=== PATIENT | female | born 1955 | race Asian ===

== ENCOUNTER 2021-11-06 07:36 | Emergency (ER) | payer SELFPAY ==
[~2021-11-06] VITALS: Ht 157.5 cm; Wt 54.4 kg
[2021-11-06 07:58] VITALS: BP_SYST 149
--- NOTE | 2021-11-06 08:02 | NUR ---
Patient to ER bed 8 to gown for evaluation. Side rails up. Report given to Evelyn RODRIGUEZ.
--- NOTE | 2021-11-06 08:12 | NUR ---
First contact with patient. Per report received from press and blow machine tender, patient reporting high blood sugar from home. Awake, alert and oriented x 3. Patient has not been taking medications for DM due to insurance lapse. Blood sugar in triage over 400. Will continue to monitor.
--- NOTE | 2021-11-06 08:13 | NUR ---
Dr Wick to bedside to evaluate patient.
[2021-11-06] MEDS ORDERED: NACL 0.9% 1,000 ML IV ONE (08:30)
--- NOTE | 2021-11-06 08:34 | NUR ---
CXR done at bedside
--- NOTE | 2021-11-06 08:35 | NUR ---
# 20 gauge angiocath placed to L AC. Use of asceptic technique. Opsite placed over site. Blood return noted. Blood for lab drawn from site. Flushed with 10 cc of normal saline. No evidence of infiltration noted. Patient tolerated well.
[2021-11-06 08:50] LABS: BILIRUBIN,URINE NEGATIVE (NEGATIVE); BLOOD, URINE NEGATIVE (NEGATIVE); COLOR,URINE YELLOW (YELLOW); GLUCOSE,URINE 3+ (NEGATIVE); KETONES,URINE 2+ (NEGATIVE); LEUKOCYTE ESTERASE ,URINE NEGATIVE (NEGATIVE); NITRITE, URINE NEGATIVE (NEGATIVE); PROTEIN URINE NEGATIVE (NEGATIVE); UROBILINOGEN,URINE 0.2 (0.2-1.0)
[2021-11-06 08:52] LABS: BASOPHILS % (AUTO) 0.3 % (0.0-2.0); EOSINOPHILS # (AUTO) 0.1 K/uL (0.0-0.4); EOSINOPHILS % (AUTO) 0.9 % (0.0-4.0); HEMATOCRIT 45.4 % (36-48); HEMOGLOBIN 14.4 g/dL (12.0-16.0); LYMPHOCYTES # (AUTO) 1.9 K/uL (1.0-5.5); LYMPHOCYTES % (AUTO) 27.1 % (20.5-51.5); MEAN CORPUSCULAR HEMOGLOBIN 24 pg (27-31); MEAN CORPUSCULAR HGB CONC 32 % (32-36); MEAN CORPUSCULAR VOLUME 75 fL (79.0-98.0); MONOCYTES # (AUTO) 0.3 K/uL (0.0-1.0); MONOCYTES % (AUTO) 4.6 % (1.7-9.3); NEUTROPHILS # (AUTO) 4.6 K/uL (1.8-7.7); NEUTROPHILS % (AUTO) 67.1 % (40.0-70.0); PLATELET COUNT (AUTO) 172 K/uL (130-430); RED BLOOD CELL COUNT(AUTO) 6.02 MIL/uL (4.2-6.2); RED CELL DISTRIBUTION WIDTH 15.8 % (9.0-15.0); WHITE BLOOD COUNT (AUTO) 6.9 K/uL (4.8-10.8)
[2021-11-06 09:08] LABS: CLARITY/URINE SLIGHTLY HAZY (CLEAR)
[2021-11-06 09:15] LABS: ANION GAP 12 (5-15); CALCIUM 9.4 mg/dL (8.4-11.0); CHLORIDE 93 mmol/L (98-107); CREATININE 1.04 mg/dL (0.55-1.30); POTASSIUM 3.8 mmol/L (3.5-5.1); SODIUM SERUM 131 mmol/L (136-145); UREA NITROGEN, BLOOD 18 mg/dL (8-21)
[2021-11-06 09:21] LABS: GFR AFRICAN AMERICAN 68 mL/min (>90); GLUCOSE 405 mg/dL (70-99)
[2021-11-06 09:22] LABS: ACETONE, SERUM NEGATIVE (NEGATIVE)
[2021-11-06 09:24] LABS: ALANINE AMINOTRANSFERASE 43 U/L (12-78); ALBUMIN 4.1 g/dL (3.4-4.8); ASPARTATE AMINOTRANSFERASE 25 U/L (10-37); TOTAL BILIRUBIN 0.9 mg/dL (0.0-1.0)
[2021-11-06 09:29] LABS: BACTERIA,URINE FEW /HPF (None Seen); RBC,URINE 0-3 /HPF (0-3)
[2021-11-06] MEDS ORDERED: INSULIN Lispro 100 UNITS/ML VIAL (humaLOG) SUBCUT ONE (09:30)
--- NOTE | 2021-11-06 10:10 | NUR ---
Report given to Bri RODRIGUEZ to assume care
--- NOTE | 2021-11-06 10:15 | NUR ---
Pt. comfortable, family at bedside, no request
[2021-11-06] MEDS ORDERED: CEPH250C PO (10:48)
--- NOTE | 2021-11-06 11:07 | NUR ---
Patient given written and verbal discharge instructions and verbalizes understanding. Dr. Mclean discussed with patient the results and treatment provided. Patient in stable condition. ID arm band removed. IV catheter removed intact and dressing applied, no active bleeding. Rx of Keflex given. Patient educated on pain management and to follow up with PMD. Pain Scale 0. Opportunity for questions provided and answered. Medication side effect fact sheet provided.
[2021-11-06 11:08] VITALS: BP_SYST 118
== END 2021-11-06 11:08 | disposition home or self-care (01) ==
LOC: SED 07:36
DX: E11.65 Type 2 diabetes mellitus with hyperglycemia (principal); R07.89 Other chest pain; N39.0 Urinary tract infection, site not specified; R03.0 Elevated blood-pressure reading, without diagnosis of hypertension; Z79.899 Other long term (current) drug therapy
CPT/HCPCS: 36415; 71045; 80053; 81000; 82009; 82962; 84484; 85025; 87086; 93005; 96360; 96372; 99285; J7030